=== PATIENT | female | born 1990 | race African-American/Black ===

== ENCOUNTER 2019-08-21 04:43 | Inpatient (IN) ==
[2019-08-21] MEDS ORDERED: MEPERIDINE 50 MG/1 ML VIAL IM PRN (05:06)
[2019-08-21] MEDS: LACTATED RINGERS 1,000 ML IV SCH ×3 (05:11→14:06)
[2019-08-21 05:30] LABS: Basophils % 0.1 % (0.0-0.8); Eosinophils % 0.4 % (0.00-10.9); Hematocrit 33.5 VOL% (35.7-47.0); Hemoglobin 10.8 GM/DL (12.0-16.0); Immature Granulocytes % 0.5 %; Immature Granulocytes Absolute 0.05 #; Lymphocytes # 1.7 10*3/uL (1.4-4.0); Lymphocytes % 15.9 % (21.3-54.2); Mean Corpuscular HGB Conc 32.2 GM/DL (32-36); Mean Corpuscular Volume 82.9 FL (87-102); Mean Platelet Volume 9.8 FL (9.6-12.0); Monocytes % 6.8 % (1.7-12.7); Neutrophils % 76.3 % (38.7-73.9); Platelet Count 271 T/CUMM (130-400); Red Blood Count 4.04 MC/CUMM (3.8-5.5); Red Cell Distribution Width 14.6 % (9.3-17.3); White Blood Count 10.6 T/CUMM (4-12)
[2019-08-21 05:53] LABS: Alanine Aminotransferase 51 U/L (13-56); Albumin 2.7 G/DL (3.4-5.0); Alkaline Phosphatase 112 U/L (45-117); Aspartate Amino Transferase 28 U/L (0-37); Bilirubin,Total < 0.39 MG/DL (0.2-1.0); Blood Urea Nitrogen 4 MG/DL (7-18); Calcium 9.3 MG/DL (8.5-10.1); Estimated Glom Filtration Rate 166 ML/MIN; Glucose 101 MG/DL (74-106); Total Protein 7.2 G/DL (6.4-8.3)
[2019-08-21] MEDS: AMPICILLIN INJ 2,000 MG in SODIUM CHLORIDE 0.9% 100 ML IV SCH ×2 (05:55→12:06)
[2019-08-21] MEDS: ONDANSETRON 4 MG/2 ML VIAL IV PRN ×2 (05:57→11:56)
[2019-08-21] MEDS: BUTORPHANOL 2 MG/ML VIAL IV PRN ×2 (05:57→08:52)
[2019-08-21] MEDS ORDERED: diphenhydrAMINE 50 MG/1 ML VIAL IV PRN ×2 (10:03)
[2019-08-21] MEDS ORDERED: ONDANSETRON 4 MG/2 ML VIAL IV ONE (10:03)
[2019-08-21] MEDS ORDERED: PROMETHAZINE 25 MG/1 ML VIAL IM ONE (10:03)
[2019-08-21] MEDS ORDERED: NALOXONE 0.4 MG/ML VIAL IV PRN (10:03)
[2019-08-21] MEDS ORDERED: CITRIC ACID/SODIUM CITRATE 30 ML UDCUP PO ONE (10:03)
[2019-08-21] MEDS ORDERED: FAMOTIDINE 20 MG/2 ML VIAL IV ONE (10:03)
[2019-08-21] MEDS ORDERED: hydrOXYzine HCL 25 MG/1 ML VIAL IM PRN (10:03)
[2019-08-21] MEDS ORDERED: BUPIVACAINE 0.5% 50 ML VIAL ONE (10:19)
[2019-08-21] MEDS ORDERED: BUPIVACAINE 0.25% 50 ML VIAL ONE (10:19)
[2019-08-21] MEDS ORDERED: fentaNYL 2 MCG/ROPIV 0.2% EPID 100 ML EPIDURAL SCH (10:30)
[2019-08-21] MEDS: ePHEDrine 50 MG/ML AMP IV PRN ×2 (11:39→11:44)
[2019-08-21] MEDS ORDERED: OXYTOCIN/LR 20 UNIT/1,000 ML BAG IV ONE ×2 (11:59→18:26)
[2019-08-21] MEDS ORDERED: OXYTOCIN/LR 20 UNIT/1,000 ML BAG IV SCH (12:30)
[2019-08-21] MEDS ORDERED: CARBOPROST TROMETHAMINE 250 MCG/ML AMP IM ONE (14:37)
[2019-08-21] MEDS ORDERED: METHYLERGONOVINE 0.2 MG/1 ML AMP ONE (14:37)
[2019-08-21] MEDS ORDERED: miSOPROStoL 200 MCG TABLET ONE (14:37)
[2019-08-21] MEDS ORDERED: TRANEXAMIC ACID 1,000 MG/10 ML VIAL ONE (14:37)
[2019-08-21] MEDS ORDERED: LIDOCAINE 1% 50 ML VIAL ONE (17:30)
[2019-08-21] MEDS ORDERED: HYDROCORTISONE 2.5% RECTAL CREAM 30 GM TUBE TOP PRN (18:26)
[2019-08-21] MEDS ORDERED: WITCH HAZEL PADS 100/JAR TOP PRN (18:26)
[2019-08-21] MEDS ORDERED: LANOLIN 50% CREAM 0.3 OZ TUBE TOP PRN (18:26)
[2019-08-21] MEDS ORDERED: BISACODYL 10 MG SUPP RECTAL PRN (18:26)
[2019-08-21] MEDS ORDERED: DIPH/TET/ACEL PERT BOOSTER VACCINE 0.5 ML VIAL IM ONE (18:26)
[2019-08-21] MEDS ORDERED: MEASLES/MUMPS/RUBELLA VACCINE 0.5 ML VIAL SUBCUT ONE (18:26)
[2019-08-21] MEDS ORDERED: ACETAMINOPHEN 325 MG TABLET PO PRN (18:26)
[2019-08-21] MEDS ORDERED: BENZOCAINE 20%/MENTHOL 0.5% SPRAY 56 GM CAN TOP PRN (18:26)
[2019-08-21] MEDS ORDERED: RHO(D) IMMUNE GLOBULIN 300 MCG SYRINGE IM ONE (18:26)
[2019-08-21] MEDS ORDERED: ONDANSETRON 4 MG/2 ML VIAL IV PRN (18:26)
[2019-08-21] MEDS: IBUPROFEN 800 MG TABLET PO PRN (22:00)
[2019-08-22 06:20] LABS: Basophils % 0.3 % (0.0-0.8); Eosinophils % 0.2 % (0.00-10.9); Hematocrit 27.6 VOL% (35.7-47.0); Hemoglobin 8.9 GM/DL (12.0-16.0); Immature Granulocytes % 0.6 %; Immature Granulocytes Absolute 0.07 #; Lymphocytes # 1.3 10*3/uL (1.4-4.0); Lymphocytes % 10.6 % (21.3-54.2); Mean Corpuscular HGB Conc 32.2 GM/DL (32-36); Mean Corpuscular Volume 82.6 FL (87-102); Monocytes % 6.8 % (1.7-12.7); Neutrophils % 81.5 % (38.7-73.9); Platelet Count 237 T/CUMM (130-400); Red Blood Count 3.34 MC/CUMM (3.8-5.5); Red Cell Distribution Width 14.5 % (9.3-17.3); White Blood Count 12.6 T/CUMM (4-12)
[2019-08-22] MEDS: IBUPROFEN 800 MG TABLET PO PRN ×2 (08:37→15:52)
[2019-08-22] MEDS: DOCUSATE SODIUM 100 MG CAPSULE PO SCH ×2 (08:37→20:52)
[2019-08-22] MEDS: FERROUS SULFATE 325 MG TABLET PO SCH ×2 (08:37→20:52)
[2019-08-22] MEDS: oxyCODONE/ACETAMINOPHEN 5-325 MG TABLET PO PRN ×3 (08:38→15:52)
[2019-08-23] MEDS: oxyCODONE/ACETAMINOPHEN 5-325 MG TABLET PO PRN (00:05)
[2019-08-23 08:37] VITALS: BP 133/72
[2019-08-23] MEDS: DOCUSATE SODIUM 100 MG CAPSULE PO SCH (09:45)
[2019-08-23] MEDS: FERROUS SULFATE 325 MG TABLET PO SCH (09:45)
[2019-08-23] MEDS: IBUPROFEN 800 MG TABLET PO PRN (11:26)
== END 2019-08-23 12:45 | disposition home or self-care (01) | DRG 560 ==
LOC: N.LDOUT 04:43 → N.LD 04:44 → N.OB 21:55
PROVIDERS: ADMIT Obstetrics & Gynecology; ATTEND Obstetrics & Gynecology

== ENCOUNTER 2021-03-26 00:45 | Inpatient (IN) ==
[2021-03-26] MEDS ORDERED: DEXTROSE 50% 25 GM/50 ML VIAL IV PRN (02:53)
[2021-03-26] MEDS ORDERED: MORPHINE 2 MG/1 ML SYRINGE IV PRN ×2 (02:53→03:38)
[2021-03-26] MEDS ORDERED: GLUCAGON 1 MG VIAL IM PRN (02:53)
[2021-03-26] MEDS ORDERED: MORPHINE 2 MG/1 ML SYRINGE IM ONE (03:37)
[2021-03-26] MEDS ORDERED: SODIUM CHLORIDE 0.9% 1,000 ML IV SCH (04:00)
[2021-03-26 05:56] LABS: Basophils % 0.1 % (0.0-0.8); Hematocrit 39.3 VOL% (35.7-47.0); Hemoglobin 12.6 GM/DL (12.0-16.0); Immature Granulocytes % 0.5 %; Immature Granulocytes Absolute 0.08 #; Lymphocytes % 6.6 % (21.3-54.2); Mean Corpuscular HGB Conc 32.1 GM/DL (32-36); Mean Corpuscular Volume 86.4 FL (87-102); Mean Platelet Volume 10.2 FL (9.6-12.0); Monocytes % 2.2 % (1.7-12.7); Neutrophils % 90.6 % (38.7-73.9); Platelet Count 366 T/CUMM (130-400); Red Blood Count 4.55 MC/CUMM (3.8-5.5); Red Cell Distribution Width 14.2 % (9.3-17.3); White Blood Count 15.8 T/CUMM (4-12)
[2021-03-26 06:18] LABS: Hypochromasia 1+; Lymphocytes 4 % (20-55); Microcytosis 1+; Platelet Estimate Adequate; Segmented Neutrophils 96 % (50-85); Total Cells Counted 100
[2021-03-26 06:22] LABS: Albumin 3.5 G/DL (3.4-5.0); Bilirubin,Total 1.7 MG/DL (0.20-1.00); Calcium 8.4 MG/DL (8.5-10.1); Osmolality,Calculated 275.5 MOS/KG (273-304); Potassium 3.7 MMOL/L (3.5-5.1); Total Protein 7.8 G/DL (6.4-8.2)
[2021-03-26] MEDS ORDERED: hydrALAZINE 20 MG/1 ML VIAL IV PRN (07:35)
[2021-03-26] MEDS: PIPERACILLIN/TAZOBACTAM 3,375 MG in SODIUM CHLORIDE 0.9% 100 ML IV SCH ×3 (09:18→23:48)
[2021-03-26] MEDS: PANTOPRAZOLE 40 MG VIAL IV SCH (09:18)
[2021-03-26] MEDS: SODIUM CHLORIDE 0.9% 1,000 ML IV SCH ×3 (09:56→13:38)
[2021-03-26] MEDS: HYDROmorphone 2 MG/1 ML VIAL IV PRN ×3 (10:04→23:54)
[2021-03-27] MEDS: SODIUM CHLORIDE 0.9% 1,000 ML IV SCH ×4 (04:13→15:04)
[2021-03-27] MEDS: HYDROmorphone 2 MG/1 ML VIAL IV PRN ×2 (05:28→15:55)
[2021-03-27 06:21] LABS: Basophils # 0.1 10*3/uL (0.0-0.2); Basophils % 0.2 % (0.0-0.8); Hemoglobin 12.6 GM/DL (12.0-16.0); Immature Granulocytes % 0.5 %; Immature Granulocytes Absolute 0.17 #; Lymphocytes # 1.8 10*3/uL (1.4-4.0); Lymphocytes % 5.7 % (21.3-54.2); Mean Corpuscular HGB Conc 32.3 GM/DL (32-36); Mean Corpuscular Volume 85.7 FL (87-102); Mean Platelet Volume 9.9 FL (9.6-12.0); Monocytes % 4.1 % (1.7-12.7); Neutrophils % 89.5 % (38.7-73.9); Platelet Count 366 T/CUMM (130-400); Red Blood Count 4.55 MC/CUMM (3.8-5.5); Red Cell Distribution Width 14.6 % (9.3-17.3); White Blood Count 31.1 T/CUMM (4-12)
[2021-03-27 06:31] LABS: INR 1.3; PT Patient Result 14.3 SECS (10.5-12.0)
[2021-03-27 06:40] LABS: Albumin 3.2 G/DL (3.4-5.0); Bilirubin,Total 0.8 MG/DL (0.20-1.00); Calcium 8.5 MG/DL (8.5-10.1); Potassium 3.4 MMOL/L (3.5-5.1); Total Protein 7.8 G/DL (6.4-8.2)
[2021-03-27 06:40] LABS: Band Neutrophils 1 % (0-10); Eosinophils 3 % (0-10); Lymphocytes 6 % (20-55); Platelet Estimate Normal; Segmented Neutrophils 90 % (50-85); Total Cells Counted 100
[2021-03-27] MEDS ORDERED: INDOMETHACIN SUPP 50 MG SUPP RECTAL ONE (08:00)
[2021-03-27] MEDS ORDERED: LACTATED RINGERS 1,000 ML IV SCH (08:00)
[2021-03-27] MEDS: PANTOPRAZOLE 40 MG VIAL IV SCH (08:49)
[2021-03-27] MEDS: PIPERACILLIN/TAZOBACTAM 3,375 MG in SODIUM CHLORIDE 0.9% 100 ML IV SCH ×2 (08:49→20:36)
[2021-03-27] MEDS ORDERED: SUCCINYLCHOLINE 200 MG/10 ML VIAL ONE (13:15)
[2021-03-27] MEDS ORDERED: LIDOCAINE 2% 5 ML VIAL ONE (13:15)
[2021-03-27] MEDS ORDERED: ROCURONIUM 50 MG/5 ML VIAL IV ONE (13:15)
[2021-03-27] MEDS ORDERED: propofoL 200 MG/20 ML VIAL IV ONE (13:15)
[2021-03-27] MEDS ORDERED: SEVOFLURANE 1 UNIT/15 MINUTE INH ONE (13:15)
[2021-03-27] MEDS ORDERED: ONDANSETRON 4 MG/2 ML VIAL ONE (13:15)
[2021-03-27] MEDS ORDERED: fentaNYL 100 MCG/2 ML VIAL ONE (13:16)
[2021-03-27] MEDS: POTASSIUM CHLORIDE RIDER 10 MEQ/100 ML PREMIX IV SCH ×2 (15:04→17:10)
[2021-03-28] MEDS: HYDROmorphone 2 MG/1 ML VIAL IV PRN ×4 (03:05→23:19)
[2021-03-28] MEDS: PIPERACILLIN/TAZOBACTAM 3,375 MG in SODIUM CHLORIDE 0.9% 100 ML IV SCH ×3 (05:00→21:03)
[2021-03-28 05:45] LABS: Basophils % 0.2 % (0.0-0.8); Hematocrit 30.7 VOL% (35.7-47.0); Immature Granulocytes % 0.6 %; Immature Granulocytes Absolute 0.11 #; Lymphocytes # 1.1 10*3/uL (1.4-4.0); Lymphocytes % 5.8 % (21.3-54.2); Mean Corpuscular HGB Conc 33.6 GM/DL (32-36); Mean Corpuscular Volume 84.3 FL (87-102); Mean Platelet Volume 10.3 FL (9.6-12.0); Neutrophils % 87.4 % (38.7-73.9); Red Blood Count 3.64 MC/CUMM (3.8-5.5); Red Cell Distribution Width 14.4 % (9.3-17.3)
[2021-03-28 05:48] LABS: Hemoglobin 10.3 GM/DL (12.0-16.0); Platelet Count 272 T/CUMM (130-400)
[2021-03-28 06:03] LABS: Albumin 2.5 G/DL (3.4-5.0); Bilirubin,Total 3.2 MG/DL (0.20-1.00); Osmolality,Calculated 271.8 MOS/KG (273-304); Potassium 3.3 MMOL/L (3.5-5.1); Total Protein 6.7 G/DL (6.4-8.2)
[2021-03-28] MEDS: SODIUM CHLORIDE 0.9% 1,000 ML IV SCH ×3 (07:40→15:54)
[2021-03-28] MEDS: POTASSIUM CHLORIDE RIDER 10 MEQ/100 ML PREMIX IV SCH ×2 (07:56→09:49)
[2021-03-28] MEDS: PANTOPRAZOLE 40 MG VIAL IV SCH (09:49)
[2021-03-28] MEDS ORDERED: TISSUE ADHESIVE 1 EACH APPLICATOR TOP ONE (10:40)
[2021-03-28] MEDS ORDERED: MIDAZOLAM 2 MG/2 ML VIAL ONE (10:58)
[2021-03-28] MEDS ORDERED: propofoL 200 MG/20 ML VIAL IV ONE (10:58)
[2021-03-28] MEDS ORDERED: LIDOCAINE 2% 5 ML VIAL ONE (10:58)
[2021-03-28] MEDS ORDERED: ROCURONIUM 50 MG/5 ML VIAL IV ONE (10:58)
[2021-03-28] MEDS ORDERED: fentaNYL 100 MCG/2 ML VIAL ONE (10:58)
[2021-03-28] MEDS ORDERED: LACTATED RINGERS 1,000 ML IV SCH (11:00)
[2021-03-28] MEDS ORDERED: ONDANSETRON 4 MG/2 ML VIAL ONE (12:53)
[2021-03-28] MEDS ORDERED: PHENYLEPHRINE 1 MG/10 ML SYRINGE IV ONE (12:53)
[2021-03-28] MEDS ORDERED: METOPROLOL TARTRATE 5 MG/5 ML VIAL IV ONE (12:54)
[2021-03-28] MEDS ORDERED: SEVOFLURANE 1 UNIT/15 MINUTE INH ONE ×2 (12:54→13:17)
[2021-03-28] MEDS ORDERED: NEOSTIGMINE 10 MG/10 ML VIAL ONE (13:02)
[2021-03-28] MEDS ORDERED: LACTATED RINGERS 1,000 ML IV ONE (13:17)
[2021-03-29 04:57] LABS: Basophils % 0.2 % (0.0-0.8); Hematocrit 28.8 VOL% (35.7-47.0); Hemoglobin 9.7 GM/DL (12.0-16.0); Immature Granulocytes % 1.2 %; Immature Granulocytes Absolute 0.24 #; Lymphocytes # 1.6 10*3/uL (1.4-4.0); Lymphocytes % 8.4 % (21.3-54.2); Mean Corpuscular HGB Conc 33.7 GM/DL (32-36); Mean Corpuscular Volume 83.7 FL (87-102); Mean Platelet Volume 10.5 FL (9.6-12.0); Monocytes % 4.9 % (1.7-12.7); Neutrophils % 85.3 % (38.7-73.9); Platelet Count 279 T/CUMM (130-400); Red Blood Count 3.44 MC/CUMM (3.8-5.5); Red Cell Distribution Width 14.6 % (9.3-17.3); White Blood Count 19.3 T/CUMM (4-12)
[2021-03-29] MEDS: SODIUM CHLORIDE 0.9% 1,000 ML IV SCH ×3 (05:03→16:19)
[2021-03-29] MEDS: HYDROmorphone 2 MG/1 ML VIAL IV PRN ×2 (05:03→16:05)
[2021-03-29 05:37] LABS: Albumin 2.5 G/DL (3.4-5.0); Bilirubin,Total 1.1 MG/DL (0.20-1.00); Calcium 7.9 MG/DL (8.5-10.1); Osmolality,Calculated 272.7 MOS/KG (273-304); Potassium 2.8 MMOL/L (3.5-5.1); Total Protein 6.5 G/DL (6.4-8.2)
[2021-03-29] MEDS: PIPERACILLIN/TAZOBACTAM 3,375 MG in SODIUM CHLORIDE 0.9% 100 ML IV SCH ×3 (06:15→20:06)
[2021-03-29] MEDS: POTASSIUM CHLORIDE RIDER 10 MEQ/100 ML PREMIX IV PRN (06:43)
[2021-03-29] MEDS: POTASSIUM CHLORIDE 20 MEQ TABLET PO SCH ×4 (09:08→13:27)
[2021-03-29] MEDS: PANTOPRAZOLE 40 MG VIAL IV SCH (09:08)
[2021-03-29 12:13] LABS: Bacteria,Urine Occasional /HPF (Few); Bilirubin,Urine Negative (Negative); Blood, Urine Large mg/dL (Negative); Glucose,Urine (UA) Negative (Negative); Ketones,Urine 20 mg/dL (Negative); Mucus,Urine Occasional /LPF (Occasional); Nitrite,Urine Negative (Negative); Protein,Urine 30 MG/DL; RBC,Urine 347 /HPF (0-4); Squamous Epithelial Cell,Urine Occasional /HPF (0-10); Urine Appearance CLEAR (Clear); Urine Color Amber (Yellow); Urine Specific Gravity 1.012 (1.001-1.035)
[2021-03-29] MEDS ORDERED: LEVALBUTEROL 1.25 MG/3 ML NEB RESP TX PRN (13:21)
[2021-03-29] MEDS ORDERED: SODIUM CHLORIDE 0.9% 500 ML IV ONE (13:24)
[2021-03-29] MEDS ORDERED: SIMETHICONE CHEW 125 MG TABLET PO PRN (13:25)
[2021-03-29] MEDS ORDERED: GLYCERIN ADULT SUPP RECTAL ONE (14:00)
[2021-03-29] MEDS: ENOXAPARIN 40 MG/0.4 ML SYRINGE SUBCUT SCH (15:52)
[2021-03-29] MEDS: LEVOFLOXACIN INJ 750 MG/150 ML PREMIX IV SCH (15:52)
[2021-03-29] MEDS: IPRATROPIUM 500 MCG/2.5 ML NEB RESP TX SCH (18:10)
[2021-03-30] MEDS ORDERED: SODIUM CHLORIDE 0.65% NASAL SPRAY 45 ML BOTTLE BOTH NARES PRN (00:50)
[2021-03-30] MEDS: IPRATROPIUM 500 MCG/2.5 ML NEB RESP TX SCH ×2 (01:15→07:45)
[2021-03-30] MEDS: PIPERACILLIN/TAZOBACTAM 3,375 MG in SODIUM CHLORIDE 0.9% 100 ML IV SCH ×3 (04:25→21:01)
[2021-03-30 06:15] LABS: Basophils % 0.1 % (0.0-0.8); Eosinophils % 0.1 % (0.00-10.9); Hematocrit 28.1 VOL% (35.7-47.0); Hemoglobin 9.4 GM/DL (12.0-16.0); Immature Granulocytes % 0.9 %; Immature Granulocytes Absolute 0.16 #; Lymphocytes # 1.5 10*3/uL (1.4-4.0); Mean Corpuscular HGB Conc 33.5 GM/DL (32-36); Mean Corpuscular Volume 84.1 FL (87-102); Monocytes % 6.6 % (1.7-12.7); Neutrophils % 83.3 % (38.7-73.9); Platelet Count 302 T/CUMM (130-400); Red Blood Count 3.34 MC/CUMM (3.8-5.5); Red Cell Distribution Width 14.6 % (9.3-17.3); White Blood Count 17.2 T/CUMM (4-12)
[2021-03-30 06:30] LABS: Albumin 2.3 G/DL (3.4-5.0); Bilirubin,Total 1.5 MG/DL (0.20-1.00); Calcium 7.7 MG/DL (8.5-10.1); Osmolality,Calculated 271.7 MOS/KG (273-304); Potassium 3.3 MMOL/L (3.5-5.1); Total Protein 6.5 G/DL (6.4-8.2)
[2021-03-30 06:45] LABS: Lymphocytes 5 % (20-55); Segmented Neutrophils 87 % (50-85); Total Cells Counted 100
[2021-03-30 06:46] LABS: Hypochromasia 1+; Microcytosis 1+; Platelet Estimate Adequate
[2021-03-30] MEDS ORDERED: POTASSIUM CHLORIDE 20 MEQ TABLET PO ONE ×2 (07:30→09:30)
[2021-03-30] MEDS ORDERED: LEVALBUTEROL 1.25 MG/3 ML NEB RESP TX PRN (07:40)
[2021-03-30] MEDS ORDERED: VANCOMYCIN INJ 1,000 MG in SODIUM CHLORIDE 0.9% 250 ML IV ONE (08:19)
[2021-03-30] MEDS ORDERED: VANCOMYCIN INJ 1,500 MG in SODIUM CHLORIDE 0.9% 500 ML IV ONE (09:00)
[2021-03-30] MEDS: LEVOFLOXACIN INJ 750 MG/150 ML PREMIX IV SCH (09:29)
[2021-03-30] MEDS: PANTOPRAZOLE 40 MG TABLET PO SCH (09:30)
[2021-03-30] MEDS: HYDROmorphone 2 MG/1 ML VIAL IV PRN (11:56)
[2021-03-30] MEDS: LACTATED RINGERS 1,000 ML IV SCH (14:30)
[2021-03-30] MEDS: ENOXAPARIN 40 MG/0.4 ML SYRINGE SUBCUT SCH (14:35)
[2021-03-31] MEDS: LACTATED RINGERS 1,000 ML IV SCH (02:17)
[2021-03-31] MEDS: HYDROmorphone 2 MG/1 ML VIAL IV PRN ×2 (03:50→16:16)
[2021-03-31] MEDS: PIPERACILLIN/TAZOBACTAM 3,375 MG in SODIUM CHLORIDE 0.9% 100 ML IV SCH ×3 (05:40→21:42)
[2021-03-31 05:50] LABS: Basophils # 0.1 10*3/uL (0.0-0.2); Basophils % 0.3 % (0.0-0.8); Eosinophils # 0.1 10*3/uL (0.0-0.87); Eosinophils % 0.6 % (0.00-10.9); Hematocrit 28.4 VOL% (35.7-47.0); Hemoglobin 9.4 GM/DL (12.0-16.0); Immature Granulocytes % 1.6 %; Immature Granulocytes Absolute 0.34 #; Lymphocytes % 9.8 % (21.3-54.2); Mean Corpuscular HGB Conc 33.1 GM/DL (32-36); Mean Corpuscular Volume 83.8 FL (87-102); Mean Platelet Volume 10.2 FL (9.6-12.0); Monocytes % 6.3 % (1.7-12.7); Neutrophils % 81.4 % (38.7-73.9); Platelet Count 323 T/CUMM (130-400); Red Blood Count 3.39 MC/CUMM (3.8-5.5); White Blood Count 20.6 T/CUMM (4-12)
[2021-03-31 06:24] LABS: Albumin 2.4 G/DL (3.4-5.0); Bilirubin,Total 1.3 MG/DL (0.20-1.00); Calcium 8.2 MG/DL (8.5-10.1); Osmolality,Calculated 265.1 MOS/KG (273-304); Potassium 3.7 MMOL/L (3.5-5.1); Total Protein 6.5 G/DL (6.4-8.2)
[2021-03-31 06:56] LABS: Hypochromasia 1+; Lymphocytes 10 % (20-55); Platelet Estimate Normal; Polychromasia Slight; Segmented Neutrophils 84 % (50-85); Total Cells Counted 100
[2021-03-31] MEDS: PANTOPRAZOLE 40 MG TABLET PO SCH (08:56)
[2021-03-31] MEDS: SODIUM CHLORIDE 0.9% 1,000 ML IV SCH (09:46)
[2021-03-31] MEDS: LEVOFLOXACIN INJ 750 MG/150 ML PREMIX IV SCH (09:47)
[2021-03-31] MEDS: ENOXAPARIN 40 MG/0.4 ML SYRINGE SUBCUT SCH (16:09)
[2021-04-01] MEDS: PIPERACILLIN/TAZOBACTAM 3,375 MG in SODIUM CHLORIDE 0.9% 100 ML IV SCH ×2 (05:19→13:52)
[2021-04-01] MEDS: SODIUM CHLORIDE 0.9% 1,000 ML IV SCH ×3 (05:19→16:08)
[2021-04-01 06:42] LABS: Basophils % 0.2 % (0.0-0.8); Eosinophils # 0.1 10*3/uL (0.0-0.87); Eosinophils % 0.8 % (0.00-10.9); Hematocrit 27.9 VOL% (35.7-47.0); Immature Granulocytes % 2.3 %; Lymphocytes # 2.3 10*3/uL (1.4-4.0); Lymphocytes % 13.1 % (21.3-54.2); Mean Corpuscular HGB Conc 32.3 GM/DL (32-36); Mean Corpuscular Volume 85.8 FL (87-102); Mean Platelet Volume 10.1 FL (9.6-12.0); Monocytes % 7.5 % (1.7-12.7); NRBC # 0.02 10*3/uL; Neutrophils % 76.1 % (38.7-73.9); Platelet Count 336 T/CUMM (130-400); Red Blood Count 3.25 MC/CUMM (3.8-5.5); Red Cell Distribution Width 15.2 % (9.3-17.3); White Blood Count 17.1 T/CUMM (4-12)
[2021-04-01 07:04] LABS: Albumin 2.3 G/DL (3.4-5.0); Calcium 8.3 MG/DL (8.5-10.1); Osmolality,Calculated 268.8 MOS/KG (273-304); Potassium 3.6 MMOL/L (3.5-5.1); Total Protein 6.4 G/DL (6.4-8.2)
[2021-04-01] MEDS ORDERED: VANCOMYCIN INJ 1,000 MG in SODIUM CHLORIDE 0.9% 250 ML IV ONE (08:37)
[2021-04-01] MEDS: PANTOPRAZOLE 40 MG TABLET PO SCH (08:45)
[2021-04-01] MEDS: LEVOFLOXACIN INJ 750 MG/150 ML PREMIX IV SCH (08:48)
[2021-04-01] MEDS: VANCOMYCIN INJ 1,750 MG in SODIUM CHLORIDE 0.9% 500 ML IV SCH ×2 (11:26→21:01)
[2021-04-01] MEDS ORDERED: BENZOCAINE/MENTHOL LOZENGE 18/BOX PO PRN (11:42)
[2021-04-01] MEDS: ENOXAPARIN 40 MG/0.4 ML SYRINGE SUBCUT SCH (13:58)
[2021-04-01] MEDS: HYDROmorphone 2 MG/1 ML VIAL IV PRN (21:07)
[2021-04-02] MEDS: PIPERACILLIN/TAZOBACTAM 3,375 MG in SODIUM CHLORIDE 0.9% 100 ML IV SCH ×3 (00:01→15:56)
[2021-04-02] MEDS: SODIUM CHLORIDE 0.9% 1,000 ML IV SCH ×4 (00:08→20:04)
[2021-04-02 05:43] LABS: Basophils % 0.2 % (0.0-0.8); Eosinophils # 0.1 10*3/uL (0.0-0.87); Eosinophils % 0.3 % (0.00-10.9); Hematocrit 27.8 VOL% (35.7-47.0); Hemoglobin 9.1 GM/DL (12.0-16.0); Immature Granulocytes % 4.5 %; Immature Granulocytes Absolute 0.86 #; Lymphocytes # 1.8 10*3/uL (1.4-4.0); Lymphocytes % 9.5 % (21.3-54.2); Mean Corpuscular HGB Conc 32.7 GM/DL (32-36); Mean Corpuscular Volume 84.8 FL (87-102); Mean Platelet Volume 9.7 FL (9.6-12.0); Monocytes % 7.1 % (1.7-12.7); NRBC # 0.03 10*3/uL; Neutrophils % 78.4 % (38.7-73.9); Platelet Count 350 T/CUMM (130-400); Red Blood Count 3.28 MC/CUMM (3.8-5.5); Red Cell Distribution Width 14.8 % (9.3-17.3); White Blood Count 19.2 T/CUMM (4-12)
[2021-04-02 06:06] LABS: Albumin 2.3 G/DL (3.4-5.0); Bilirubin,Total 0.5 MG/DL (0.20-1.00); Calcium 8.1 MG/DL (8.5-10.1); Osmolality,Calculated 273.5 MOS/KG (273-304); Potassium 3.2 MMOL/L (3.5-5.1); Total Protein 6.4 G/DL (6.4-8.2)
[2021-04-02 06:10] LABS: Lymphocytes 6 % (20-55); Platelet Estimate Adequate; Segmented Neutrophils 86 % (50-85); Total Cells Counted 100
[2021-04-02 06:11] LABS: Hypochromasia 1+; Microcytosis 1+
[2021-04-02] MEDS: PANTOPRAZOLE 40 MG TABLET PO SCH (08:40)
[2021-04-02] MEDS: POTASSIUM CHLORIDE 20 MEQ TABLET PO PRN ×4 (09:55→17:00)
[2021-04-02] MEDS: HYDROmorphone 2 MG/1 ML VIAL IV PRN ×3 (11:20→19:54)
[2021-04-02] MEDS: VANCOMYCIN INJ 1,750 MG in SODIUM CHLORIDE 0.9% 500 ML IV SCH ×2 (11:21→21:55)
[2021-04-02] MEDS: LEVOFLOXACIN INJ 750 MG/150 ML PREMIX IV SCH (14:16)
[2021-04-02] MEDS: ENOXAPARIN 40 MG/0.4 ML SYRINGE SUBCUT SCH (15:58)
[2021-04-03] MEDS: PIPERACILLIN/TAZOBACTAM 3,375 MG in SODIUM CHLORIDE 0.9% 100 ML IV SCH ×3 (00:16→15:24)
[2021-04-03 06:15] LABS: Basophils % 0.2 % (0.0-0.8); Eosinophils # 0.1 10*3/uL (0.0-0.87); Eosinophils % 0.6 % (0.00-10.9); Hematocrit 29.6 VOL% (35.7-47.0); Hemoglobin 9.5 GM/DL (12.0-16.0); Immature Granulocytes % 4.5 %; Lymphocytes % 11.1 % (21.3-54.2); Mean Corpuscular HGB Conc 32.1 GM/DL (32-36); Mean Corpuscular Volume 86.3 FL (87-102); Mean Platelet Volume 9.9 FL (9.6-12.0); Monocytes % 7.1 % (1.7-12.7); Neutrophils % 76.5 % (38.7-73.9); Platelet Count 392 T/CUMM (130-400); Red Blood Count 3.43 MC/CUMM (3.8-5.5); Red Cell Distribution Width 15.2 % (9.3-17.3); White Blood Count 17.8 T/CUMM (4-12)
[2021-04-03 06:33] LABS: Albumin 2.3 G/DL (3.4-5.0); Bilirubin,Total 0.4 MG/DL (0.20-1.00); Calcium 8.3 MG/DL (8.5-10.1); Osmolality,Calculated 271.7 MOS/KG (273-304); Potassium 3.3 MMOL/L (3.5-5.1); Total Protein 6.4 G/DL (6.4-8.2)
[2021-04-03 06:36] LABS: Eosinophils 1 % (0-10); Hypochromasia 1+; Lymphocytes 8 % (20-55); Microcytosis 1+; Platelet Estimate Adequate; Segmented Neutrophils 87 % (50-85); Total Cells Counted 100
[2021-04-03] MEDS: SODIUM CHLORIDE 0.9% 1,000 ML IV SCH ×2 (06:44→17:47)
[2021-04-03] MEDS: PANTOPRAZOLE 40 MG TABLET PO SCH (08:00)
[2021-04-03] MEDS: LEVOFLOXACIN INJ 750 MG/150 ML PREMIX IV SCH (08:00)
[2021-04-03] MEDS: VANCOMYCIN INJ 1,750 MG in SODIUM CHLORIDE 0.9% 500 ML IV SCH (09:28)
[2021-04-03] MEDS: POTASSIUM CHLORIDE RIDER 10 MEQ/100 ML PREMIX IV PRN ×4 (13:46→21:49)
[2021-04-03] MEDS: ENOXAPARIN 40 MG/0.4 ML SYRINGE SUBCUT SCH (15:24)
[2021-04-03] MEDS: HYDROmorphone 2 MG/1 ML VIAL IV PRN (21:39)
[2021-04-03] MEDS: ONDANSETRON 4 MG/2 ML VIAL IV PRN (21:41)
[2021-04-04] MEDS: PIPERACILLIN/TAZOBACTAM 3,375 MG in SODIUM CHLORIDE 0.9% 100 ML IV SCH ×3 (00:07→15:29)
[2021-04-04] MEDS: SODIUM CHLORIDE 0.9% 1,000 ML IV SCH (04:29)
[2021-04-04 06:02] LABS: Basophils # 0.1 10*3/uL (0.0-0.2); Basophils % 0.3 % (0.0-0.8); Eosinophils # 0.2 10*3/uL (0.0-0.87); Eosinophils % 0.8 % (0.00-10.9); Hematocrit 29.3 VOL% (35.7-47.0); Hemoglobin 9.4 GM/DL (12.0-16.0); Immature Granulocytes % 3.4 %; Immature Granulocytes Absolute 0.61 #; Lymphocytes # 1.9 10*3/uL (1.4-4.0); Lymphocytes % 10.6 % (21.3-54.2); Mean Corpuscular HGB Conc 32.1 GM/DL (32-36); Mean Corpuscular Volume 86.4 FL (87-102); Mean Platelet Volume 9.9 FL (9.6-12.0); Monocytes % 6.7 % (1.7-12.7); Neutrophils % 78.2 % (38.7-73.9); Platelet Count 392 T/CUMM (130-400); Red Blood Count 3.39 MC/CUMM (3.8-5.5); Red Cell Distribution Width 15.2 % (9.3-17.3); White Blood Count 18.2 T/CUMM (4-12)
[2021-04-04] MEDS: ONDANSETRON 4 MG/2 ML VIAL IV PRN ×2 (06:23→15:24)
[2021-04-04] MEDS: HYDROmorphone 2 MG/1 ML VIAL IV PRN ×3 (06:23→22:27)
[2021-04-04 06:25] LABS: Hypochromasia 1+; Lymphocytes 7 % (20-55); Microcytosis 1+; Platelet Estimate Adequate; Segmented Neutrophils 88 % (50-85); Total Cells Counted 100
[2021-04-04 06:34] LABS: Albumin 2.2 G/DL (3.4-5.0); Bilirubin,Total 0.7 MG/DL (0.20-1.00); Calcium 8.4 MG/DL (8.5-10.1); Osmolality,Calculated 275.4 MOS/KG (273-304); Potassium 3.6 MMOL/L (3.5-5.1); Total Protein 6.4 G/DL (6.4-8.2)
[2021-04-04] MEDS: PANTOPRAZOLE 40 MG TABLET PO SCH (08:42)
[2021-04-04] MEDS: LEVOFLOXACIN INJ 750 MG/150 ML PREMIX IV SCH (08:42)
[2021-04-04] MEDS: ENOXAPARIN 40 MG/0.4 ML SYRINGE SUBCUT SCH ×2 (14:20→15:30)
[2021-04-05] MEDS: SODIUM CHLORIDE 0.9% 1,000 ML IV SCH ×4 (00:59→23:39)
[2021-04-05] MEDS: PIPERACILLIN/TAZOBACTAM 3,375 MG in SODIUM CHLORIDE 0.9% 100 ML IV SCH ×2 (02:26→09:09)
[2021-04-05 05:35] LABS: Basophils % 0.2 % (0.0-0.8); Eosinophils # 0.1 10*3/uL (0.0-0.87); Eosinophils % 0.6 % (0.00-10.9); Hematocrit 28.2 VOL% (35.7-47.0); Hemoglobin 8.9 GM/DL (12.0-16.0); Immature Granulocytes % 2.3 %; Immature Granulocytes Absolute 0.39 #; Lymphocytes # 2.1 10*3/uL (1.4-4.0); Lymphocytes % 11.9 % (21.3-54.2); Mean Corpuscular HGB Conc 31.6 GM/DL (32-36); Mean Platelet Volume 9.7 FL (9.6-12.0); Monocytes % 7.6 % (1.7-12.7); Neutrophils % 77.4 % (38.7-73.9); Platelet Count 389 T/CUMM (130-400); Red Blood Count 3.28 MC/CUMM (3.8-5.5); White Blood Count 17.3 T/CUMM (4-12)
[2021-04-05 05:55] LABS: Albumin 2.2 G/DL (3.4-5.0); Bilirubin,Total 0.4 MG/DL (0.20-1.00); Osmolality,Calculated 271.7 MOS/KG (273-304); Potassium 3.2 MMOL/L (3.5-5.1); Total Protein 6.1 G/DL (6.4-8.2)
[2021-04-05] MEDS: HYDROmorphone 2 MG/1 ML VIAL IV PRN ×4 (06:38→23:39)
[2021-04-05] MEDS ORDERED: LEVOTHYROXINE 100 MCG VIAL IV SCH (07:00)
[2021-04-05] MEDS: PANTOPRAZOLE 40 MG TABLET PO SCH (08:43)
[2021-04-05] MEDS ORDERED: LEVOFLOXACIN INJ 750 MG/150 ML PREMIX IV SCH (09:00)
[2021-04-05] MEDS: ENOXAPARIN 40 MG/0.4 ML SYRINGE SUBCUT SCH (14:00)
[2021-04-05] MEDS: ONDANSETRON 4 MG/2 ML VIAL IV PRN (14:01)
[2021-04-05] MEDS: POTASSIUM CHLORIDE RIDER 10 MEQ/100 ML PREMIX IV PRN ×5 (14:30→18:33)
[2021-04-06 05:22] LABS: Basophils % 0.3 % (0.0-0.8); Eosinophils # 0.1 10*3/uL (0.0-0.87); Eosinophils % 0.8 % (0.00-10.9); Hematocrit 28.1 VOL% (35.7-47.0); Immature Granulocytes % 3.3 %; Immature Granulocytes Absolute 0.46 #; Lymphocytes # 2.4 10*3/uL (1.4-4.0); Lymphocytes % 16.7 % (21.3-54.2); Mean Corpuscular Volume 86.7 FL (87-102); Mean Platelet Volume 9.5 FL (9.6-12.0); Monocytes % 6.8 % (1.7-12.7); Neutrophils % 72.1 % (38.7-73.9); Platelet Count 409 T/CUMM (130-400); Red Blood Count 3.24 MC/CUMM (3.8-5.5); White Blood Count 14.1 T/CUMM (4-12)
[2021-04-06] MEDS: SODIUM CHLORIDE 0.9% 1,000 ML IV SCH ×3 (05:36→15:25)
[2021-04-06 05:46] LABS: Calcium 8.1 MG/DL (8.5-10.1); Osmolality,Calculated 278.3 MOS/KG (273-304); Potassium 3.6 MMOL/L (3.5-5.1)
[2021-04-06] MEDS: ONDANSETRON 4 MG/2 ML VIAL IV PRN ×2 (06:38→11:52)
[2021-04-06] MEDS: HYDROmorphone 2 MG/1 ML VIAL IV PRN ×3 (06:39→15:50)
[2021-04-06] MEDS: PANTOPRAZOLE 40 MG TABLET PO SCH (08:40)
[2021-04-06 11:13] VITALS: BP 130/78
[2021-04-06] MEDS: POTASSIUM CHLORIDE RIDER 10 MEQ/100 ML PREMIX IV PRN ×2 (11:53→14:20)
[2021-04-06] MEDS: ENOXAPARIN 40 MG/0.4 ML SYRINGE SUBCUT SCH (14:54)
== END 2021-04-06 17:22 | disposition home or self-care (01) | DRG 417 ==
LOC: N.3E 02:27 → SUATTDRO 02:27
PROVIDERS: ADMIT Internal Medicine; ATTEND Internal Medicine
PROC: ERCPWSP (ICD-10-PCS; 2021-03-27 11:35)
PROC: LAPCHOL (2021-03-28 11:39)